=== PATIENT | female | born 1965 | race Caucasian/White ===

== ENCOUNTER 2016-12-25 14:46 | Emergency (ER) | payer MEDICARE ==
[2017-02-14] MEDS ORDERED: EFFEXOR75 MG PO (11:43)
[2017-02-14] MEDS ORDERED: ZANAFLEX4 MG PO (11:43)
[2017-02-14] MEDS ORDERED: KLONOPIN0.5 MG PO (11:44)
[2017-02-14] MEDS ORDERED: LYRICA150 MG PO (11:44)
[2017-02-14] MEDS ORDERED: VITAMIN D250000 UNIT PO (11:44)
[2017-02-14] MEDS ORDERED: IMITREX50 MG PO (11:45)
[2017-02-14] MEDS ORDERED: PREVACID30 MG PO (11:45)
[2017-02-14] MEDS ORDERED: SYNTHROID112 MCG PO (11:45)
[2017-02-14] MEDS ORDERED: VITAMIN D32000 UNI1 PO (11:46)
[2017-02-14] MEDS ORDERED: DICYCLOMINE HCL20 MG PO (11:46)
[2017-02-14] MEDS ORDERED: COLACE100 MG PO (11:47)
[2017-02-14] MEDS ORDERED: ZOFRAN ODT4 MG PO (11:47)
[2017-02-14] MEDS ORDERED: COUMADIN5 MG PO (11:48)
[2017-02-14] MEDS ORDERED: FERROUS SULFAT325 MG PO (11:48)
[2017-02-14] MEDS ORDERED: VITAMIN C500 M4 PO (11:48)
[2017-02-14] MEDS ORDERED: PERCOCET 10-321 EACH PO (11:49)
[2017-04-21] MEDS ORDERED: EFFEXOR XR75 MG PO (08:18)
[2017-04-21] MEDS ORDERED: ZANAFLEX4 MG PO (08:18)
[2017-04-21] MEDS ORDERED: KLONOPIN0.5 MG PO (08:19)
[2017-04-21] MEDS ORDERED: LYRICA150 MG PO (08:20)
[2017-04-21] MEDS ORDERED: SYNTHROID112 MCG PO (08:20)
[2017-04-21] MEDS ORDERED: PREVACID30 MG PO (08:20)
[2017-04-21] MEDS ORDERED: IMITREX50 MG PO (08:21)
[2017-04-21] MEDS ORDERED: VITAMIN D32000 UNI1 PO (08:21)
[2017-04-21] MEDS ORDERED: DICYCLOMINE HCL20 MG PO (08:22)
[2017-04-21] MEDS ORDERED: VITAMIN C500 M1 PO (08:23)
[2017-04-21] MEDS ORDERED: COLACE100 MG PO (08:23)
[2017-04-21] MEDS ORDERED: ZOFRAN ODT4 MG PO (08:23)
[2017-04-21] MEDS ORDERED: PERCOCET 10-321 EACH PO (08:25)
[2017-04-21] MEDS ORDERED: COUMADIN4 MG PO (08:25)
[2017-04-21] MEDS ORDERED: DITROPAN XL10 MG PO (08:25)
[2017-04-21] MEDS ORDERED: VALIUM5 MG PO (08:26)
[2017-04-21] MEDS ORDERED: MAGNESIUM OXID400 MG PO (08:26)
[2017-04-21] MEDS ORDERED: FERROUS SULFAT325 MG PO (08:27)
== END 2016-12-25 18:00 | disposition home or self-care (01) ==
LOC: ER 14:46
DX: M16.12 Unilateral primary osteoarthritis, left hip (principal); E03.9 Hypothyroidism, unspecified; F32.9 Major depressive disorder, single episode, unspecified; F17.200 Nicotine dependence, unspecified, uncomplicated; Z88.5 Allergy status to narcotic agent; Z88.8 Allergy status to other drugs, medicaments and biological substances; Z90.710 Acquired absence of both cervix and uterus; Z90.49 Acquired absence of other specified parts of digestive tract
CPT/HCPCS: 73502-LT; 96372; J1885

== ENCOUNTER 2017-04-14 07:29 | Inpatient (IN) | payer MEDICARE ==
[~2017-04-14] VITALS: Ht 165.1 cm; Wt 72.6 kg
[~2017-04-14 07:29] MED LIST: COLACE100 MG PO; COUMADIN5 MG PO; DICYCLOMINE HCL20 MG PO; EFFEXOR75 MG PO; FERROUS SULFAT325 MG PO; IMITREX50 MG PO; KLONOPIN0.5 MG PO; LYRICA150 MG PO; PERCOCET 10-321 EACH PO; PREVACID30 MG PO; SYNTHROID112 MCG PO; VITAMIN C500 M4 PO; VITAMIN D250000 UNIT PO; VITAMIN D32000 UNI1 PO; ZANAFLEX4 MG PO; ZOFRAN ODT4 MG PO
--- NOTE | 2017-04-15 10:02 | NUR ---
0820 PATIENT HAS PNEUMATIC COMPRESSION DEVICE TO LEFT LOWER EXT.
--- NOTE | 2017-04-16 04:15 | NUR ---
pt didnt wish to have waffle overlay on bed tonight. states she will be getting up with PT tomorrow and will have her muscle relaxers tomorrow
[2017-04-21] MEDS ORDERED: ZANAFLEX4 MG PO (08:18)
[2017-04-21] MEDS ORDERED: EFFEXOR XR75 MG PO (08:18)
[2017-04-21] MEDS ORDERED: KLONOPIN0.5 MG PO (08:19)
[2017-04-21] MEDS ORDERED: SYNTHROID112 MCG PO (08:20)
[2017-04-21] MEDS ORDERED: PREVACID30 MG PO (08:20)
[2017-04-21] MEDS ORDERED: LYRICA150 MG PO (08:20)
[2017-04-21] MEDS ORDERED: VITAMIN D32000 UNI1 PO (08:21)
[2017-04-21] MEDS ORDERED: IMITREX50 MG PO (08:21)
[2017-04-21] MEDS ORDERED: DICYCLOMINE HCL20 MG PO (08:22)
[2017-04-21] MEDS ORDERED: ZOFRAN ODT4 MG PO (08:23)
[2017-04-21] MEDS ORDERED: COLACE100 MG PO (08:23)
[2017-04-21] MEDS ORDERED: VITAMIN C500 M1 PO (08:23)
[2017-04-21] MEDS ORDERED: DITROPAN XL10 MG PO (08:25)
[2017-04-21] MEDS ORDERED: PERCOCET 10-321 EACH PO (08:25)
[2017-04-21] MEDS ORDERED: COUMADIN4 MG PO (08:25)
[2017-04-21] MEDS ORDERED: VALIUM5 MG PO (08:26)
[2017-04-21] MEDS ORDERED: MAGNESIUM OXID400 MG PO (08:26)
[2017-04-21] MEDS ORDERED: FERROUS SULFAT325 MG PO (08:27)
== END 2017-04-18 14:25 | disposition home health service (06) | DRG 470 ==
LOC: SDC → MED 13:48 → SDC 16:47 → MED 04-18 14:25
PROVIDERS: ADMIT Internal Medicine
PROC: 0SR904A Replacement of Right Hip Joint with Ceramic on Polyethylene Synthetic Substitute, Uncemented, Open Approach (ICD-10-PCS; principal; 2017-04-14)
PROC: 30233N1 Transfusion of Nonautologous Red Blood Cells into Peripheral Vein, Percutaneous Approach (ICD-10-PCS; 2017-04-17)
PROC: 3E0234Z Introduction of Serum, Toxoid and Vaccine into Muscle, Percutaneous Approach (ICD-10-PCS; 2017-04-18)
DX: M16.11 Unilateral primary osteoarthritis, right hip (principal); D62 Acute posthemorrhagic anemia; E83.42 Hypomagnesemia; F41.9 Anxiety disorder, unspecified; F32.9 Major depressive disorder, single episode, unspecified; F17.210 Nicotine dependence, cigarettes, uncomplicated; E03.9 Hypothyroidism, unspecified; K21.9 Gastro-esophageal reflux disease without esophagitis; E87.6 Hypokalemia; K59.00 Constipation, unspecified; E11.9 Type 2 diabetes mellitus without complications; G25.81 Restless legs syndrome; G89.29 Other chronic pain; G43.909 Migraine, unspecified, not intractable, without status migrainosus; K58.9 Irritable bowel syndrome, unspecified; Z79.899 Other long term (current) drug therapy; Z88.5 Allergy status to narcotic agent; Z91.09 Other allergy status, other than to drugs and biological substances; Z90.710 Acquired absence of both cervix and uterus; Z90.49 Acquired absence of other specified parts of digestive tract; Z82.49 Family history of ischemic heart disease and other diseases of the circulatory system; M54.5 Low back pain; M79.7 Fibromyalgia; Z80.9 Family history of malignant neoplasm, unspecified; M62.838 Other muscle spasm; Z23 Encounter for immunization
CPT/HCPCS: 73502-RT; 90686; 97161-GP; C1713; C1776; J1650; J2550; J2704; J2765; J7040; P9021